=== PATIENT | male | born 1995 | race Caucasian/White ===

== ENCOUNTER 2019-05-10 08:16 | Emergency (ER) | payer MEDICAID ==
[~2019-05-10] VITALS: Ht 175.3 cm; Wt 86.2 kg
[2019-05-10 08:28] VITALS: BP_SYST 143
--- NOTE | 2019-05-10 08:28 | NUR ---
Patient to ER bed 6 to gown for evaluation. Side rails up. Report given to LAWRENCE TAYLOR.
--- NOTE | 2019-05-10 08:35 | NUR ---
JKAE Hartman at bedside examining patient.
--- NOTE | 2019-05-10 08:42 | NUR ---
Pt c/o pain in abd region radiating to lower back rating 10/10. No other complaints at this time
--- NOTE | 2019-05-10 09:00 | NUR ---
Patient transported to radiology via gurney, accompanied by rad.
[2019-05-10] MEDS ORDERED: LACTULOSE 20 GM/30 ML UDC PO ONE (09:45)
[2019-05-10 09:49] VITALS: BP_SYST 143
--- NOTE | 2019-05-10 09:53 | NUR ---
Patient given written and verbal discharge instructions and verbalizes understanding. ER MD discussed with patient the results and treatment provided. Patient in stable condition. ID arm band removed. Rx of Miralx given. Patient educated on pain management and to follow up with PMD. Pain Scale 3/10.Opportunity for questions provided and answered. Medication side effect fact sheet provided.
== END 2019-05-10 09:49 | disposition home or self-care (01) ==
LOC: SED 08:16
DX: K59.00 Constipation, unspecified (principal)
CPT/HCPCS: 99284

== ENCOUNTER 2023-08-24 05:52 | Emergency (ER) | payer SELFPAY ==
[~2023-08-24] VITALS: Ht 175.3 cm; Wt 86.2 kg
[2023-08-24 05:55] VITALS: BP_SYST 133; PULSE 65; RESP 20; TEMP 97.1; O2SAT 100
[2023-08-24] MEDS: METOCLOPRAMIDE HCL 10 MG/2 ML VIAL IVP ONE (06:36)
[2023-08-24] MEDS: DIPHENHYDRAMINE INJ 50 MG/ML VIAL IVP ONE (06:37)
[2023-08-24] MEDS: DEXAMETHASONE SOD PHOSPHATE 4 MG/ML VIAL IVP ONE (06:37)
[2023-08-24] MEDS: NACL 0.9% 1,000 ML IV ONE (06:39)
[2023-08-24 07:12] LABS: CREATININE 1.12 mg/dL (0.55-1.30); POTASSIUM 3.9 mmol/L (3.5-5.1)
[2023-08-24 07:26] LABS: BASOPHILS % (AUTO) 0.5 % (0.0-2.0); EOSINOPHILS # (AUTO) 0.1 K/uL (0.0-0.4); EOSINOPHILS % (AUTO) 1.4 % (0.0-4.0); HEMATOCRIT 45.9 % (36-54); HEMOGLOBIN 15.9 g/dL (14.0-18.0); LYMPHOCYTES # (AUTO) 1.8 K/uL (1.0-5.5); LYMPHOCYTES % (AUTO) 32.2 % (20.5-51.5); MEAN CORPUSCULAR HEMOGLOBIN 31 pg (27-31); MEAN CORPUSCULAR HGB CONC 35 % (32-36); MEAN CORPUSCULAR VOLUME 88 fL (79.0-98.0); MONOCYTES # (AUTO) 0.5 K/uL (0.0-1.0); MONOCYTES % (AUTO) 9.1 % (1.7-9.3); NEUTROPHILS # (AUTO) 3.1 K/uL (1.8-7.7); NEUTROPHILS % (AUTO) 56.8 % (40.0-70.0); PLATELET COUNT (AUTO) 175 K/uL (130-430); RED BLOOD CELL COUNT(AUTO) 5.22 MIL/uL (4.2-6.2); RED CELL DISTRIBUTION WIDTH 13.3 % (9.0-15.0); WHITE BLOOD COUNT (AUTO) 5.4 K/uL (4.8-10.8)
[2023-08-24 07:47] LABS: PHOSPHORUS 4.5 mg/dL (2.7-4.5); THYROID STIMULATING HORMONE 3.02 uIu/mL (0.34-4.82)
[2023-08-24 08:09] VITALS: BP_SYST 96; PULSE 50; RESP 18; TEMP 98.2; O2SAT 98
== END 2023-08-24 08:09 | disposition left against medical advice (07) ==
LOC: SED 05:52
DX: R51.9 Headache, unspecified (principal)
CPT/HCPCS: 99285; 96374; 70450; 96375; 96361; 80048; 83735; 84100; 84443; 85025; 36415; 82948; J1100; J1200; J2765